=== PATIENT | female | born 1970 | race Caucasian/White ===

== ENCOUNTER → 2016-08-08 | Outpatient (CLI) | payer BC ==
[2016-08-08 09:21] LABS: CHLORIDE,CL 105 mmol/L (98-110); SODIUM,NA 141 mmol/L (136-146)
== END ==
LOC: MW.CHFP 08:42
PROVIDERS: ATTEND Emergency Medicine
DX: I10 Essential (primary) hypertension (principal)
CPT/HCPCS: 36415; 80048; 80061

== ENCOUNTER 2021-07-25 07:55 | Day surgery (SDC) | payer BC ==
[~2021-07-25 07:55] MED LIST: Albuterol 0.083% 2.5 MG/3 ML Neb Soln NEB PRN; Bupivacaine 0.5% 10 ML SDV ONE; Bupivacaine 0.5% 30 ML SDV ONE; Bupivacaine 25%/EPINEPHrine/PF 30 ML ONE; Dexamethasone 4 MG/ML 5 ML MDV ONE; Dexmedetomidine 200 MCG/2 ML SDV ONE; HYDROmorphone 1 MG/ML Syringe IVPUSH PRN; Lactated Ringers 1,000 ML IV SCH; Lidocaine 2% 5 ML SDV ONE; Metoclopramide 10 MG/2 ML SDV IVPUSH PRN; Midazolam 1 MG/ML 2 ML SDV ONE; Morphine 2 MG/ML SYRINGE IVPUSH PRN; Naloxone 0.4 MG/ML SDV IVPUSH PRN; Octyl 2-Cyanoacrylate 1 Tube ONE; Ondansetron 4 MG/2 ML SDV IVPUSH PRN; Ondansetron 4 MG/2 ML SDV ONE; Propofol 200 MG/20 ML SDV ONE; Rocuronium Bromide 50 MG/5 ML Syringe ONE; Sodium Chloride 0.9% 10 ML Syringe FLUSH PRN; Sodium Chloride 0.9% 2.5 ML Syringe FLUSH PRN; Sodium Chloride 0.9% 20 ML SDV IV PRN; Sugammadex Sodium 200 MG/2 ML VIAL ONE; Water For Injection, Sterile 20 ML ONE; ceFAZolin 2 GM in Premix Bag 1 BAG IV ONE; fentaNYL 100 MCG/2 ML SDV IVPUSH PRN; fentaNYL 250 MCG/5 ML SDV ONE
[2021-07-25 12:17] VITALS: BP 126/62; PULSE 66
== END 2021-07-25 12:35 | disposition home or self-care (01) ==
LOC: MW.SDS 07:55
PROVIDERS: ATTEND Surgery
DX: K81.1 Chronic cholecystitis (principal); K82.8 Other specified diseases of gallbladder; E78.00 Pure hypercholesterolemia, unspecified; I10 Essential (primary) hypertension; Z88.8 Allergy status to other drugs, medicaments and biological substances; Z88.2 Allergy status to sulfonamides; Z79.82 Long term (current) use of aspirin; Z79.899 Other long term (current) drug therapy; Z98.890 Other specified postprocedural states; Z87.891 Personal history of nicotine dependence
CPT/HCPCS: 47562; A9270; J0131; J0690; J2250; J2370; J2704; J3010; J3490; J7120; 00790; J1100; J2405

== ENCOUNTER 2023-12-31 09:13 | Day surgery (SDC) | payer BC ==
[~2023-12-31 09:13] MED LIST changes: -Albuterol 0.083% 2.5 MG/3 ML Neb Soln NEB PRN; -Bupivacaine 0.5% 10 ML SDV ONE; -Bupivacaine 0.5% 30 ML SDV ONE; -Bupivacaine 25%/EPINEPHrine/PF 30 ML ONE; -Dexamethasone 4 MG/ML 5 ML MDV ONE; -Dexmedetomidine 200 MCG/2 ML SDV ONE; -HYDROmorphone 1 MG/ML Syringe IVPUSH PRN; -Lactated Ringers 1,000 ML IV SCH; -Lidocaine 2% 5 ML SDV ONE; -Metoclopramide 10 MG/2 ML SDV IVPUSH PRN; -Midazolam 1 MG/ML 2 ML SDV ONE; -Morphine 2 MG/ML SYRINGE IVPUSH PRN; -Naloxone 0.4 MG/ML SDV IVPUSH PRN; -Octyl 2-Cyanoacrylate 1 Tube ONE; -Ondansetron 4 MG/2 ML SDV IVPUSH PRN; -Ondansetron 4 MG/2 ML SDV ONE; -Propofol 200 MG/20 ML SDV ONE; -Rocuronium Bromide 50 MG/5 ML Syringe ONE; -Sugammadex Sodium 200 MG/2 ML VIAL ONE; -Water For Injection, Sterile 20 ML ONE; -ceFAZolin 2 GM in Premix Bag 1 BAG IV ONE; -fentaNYL 100 MCG/2 ML SDV IVPUSH PRN; -fentaNYL 250 MCG/5 ML SDV ONE
[2023-12-31] MEDS: Lactated Ringers 1,000 ML IV SCH (10:04)
[2023-12-31] MEDS ORDERED: propofoL 50 ML ONE (10:41)
[2023-12-31] MEDS ORDERED: Phenylephrine HCl In 0.9% NaCl 1 MG/10 ML Syringe ONE (10:58)
[2023-12-31] MEDS ORDERED: fentaNYL 100 MCG/2 ML SDV ONE (11:00)
[2023-12-31] MEDS ORDERED: ePHEDrine 50 MG/ML SDV ONE (11:03)
[2023-12-31 12:15] VITALS: BP 106/64; PULSE 82
== END 2023-12-31 11:57 | disposition home or self-care (01) ==
LOC: MW.SDS 09:13
PROVIDERS: ATTEND Surgery
DX: Z12.11 Encounter for screening for malignant neoplasm of colon (principal); I10 Essential (primary) hypertension; E78.00 Pure hypercholesterolemia, unspecified; Z87.891 Personal history of nicotine dependence; Z86.010 Personal history of colon polyps; Z79.899 Other long term (current) drug therapy; Z88.0 Allergy status to penicillin; Z88.2 Allergy status to sulfonamides
CPT/HCPCS: 45378; J2371; J2704; J3010; J7120; J3490